=== PATIENT | male | born 1980 | race Caucasian/White ===

== ENCOUNTER 2019-01-21 09:24 | Emergency (ER) | payer SELFPAY ==
--- NOTE | 2019-01-21 10:59 | EDM.PDOC ---
ED HPI GENERAL MEDICAL PROBLEM - General Chief Complaint: ENT Problem Stated Complaint: DENTAL ABSCESS/BACK PAIN Time Seen by Provider: 01/21/19 10:34 Source of Information: Reports: Patient, RN Notes Reviewed - History of Present Illness INITIAL COMMENTS - FREE TEXT/NARRATIVE: 38-year-old patient presents with upper dental discomfort is mid incisors. He also has low back pain. He has been present for about 2 weeks. He does have history of severe cavitation of his upper incisors more so on the left and also left canine tooth. There is been no facial swelling. No fever or chills. Back pain does not radiate down either leg. Worse with movement. Oral/Mouth Pain Score (Numeric/FACES): 8 - Related Data Allergies Allergy/AdvReac Type Severity Reaction Status Date / Time No Known Allergies Allergy Verified 01/21/19 09:34 Home Meds: Home Meds Acetaminophen/HYDROcodone [Carbon 325-5 MG] 1 tab PO Q6H PRN #10 tablet 01/21/19 [Rx] Naproxen [Naprosyn] 500 mg PO Q12HR PRN #14 tab 01/21/19 [Rx] Past Medical History - Past Health History Medical/Surgical History: Denies Medical/Surgical History Psychiatric History: Reports: Addiction Social & Family History - Tobacco Use Smoking Status *Q: Current Every Day Smoker Years of Tobacco use: 31 Packs/Tins Daily: 2 - Caffeine Use Caffeine Use: Reports: Energy Drinks - Recreational Drug Use Recreational Drug Use: Yes Recreational Drug Type: Reports: Marijuana/Hashish, Methamphetamine ED ROS ENT - Review of Systems Review Of Systems: See Below Constitutional: Denies: Fever, Chills HEENT: Reports: Dental Pain. Denies: Throat Pain Respiratory: Denies: Shortness of Breath Cardiovascular: Denies: Chest Pain GI/Abdominal: Denies: Abdominal Pain, Vomiting Musculoskeletal: Reports: Back Pain Skin: Denies: Rash Neurological: Reports: No Symptoms ED EXAM, ENT - Physical Exam Exam: See Below General Appearance: Alert, Mild Distress Eye Exam: Bilateral Eye: PERRL Mouth/Throat: Other (severe cavitation L upper incsissors and L canine, broken off close to gum line, no visible swelling or drainage). No: Dental Abcess, Pharyngeal Erythema, Throat Swelling Head: No: Facial Swelling, Facial Tenderness, Sinus Tenderness Neck: Supple Respiratory/Chest: No Respiratory Distress, Lungs Clear Cardiovascular: Regular Rate, Rhythm Back: Paraspinal Tenderness (low back). No: Vertebral Tenderness Neurological: Alert, Oriented Skin: Warm, Dry, Normal Color Course - Vital Signs Last Recorded V/S: Last Vital Signs Temp 97.4 F 01/21/19 09:31 Pulse 61 01/21/19 09:31 Resp 16 01/21/19 09:31 BP 147/92 H 01/21/19 09:31 Pulse Ox 100 01/21/19 09:31 Departure - Departure Time of Disposition: 10:54 Disposition: Home, Self-Care 01 Condition: Fair Clinical Impression: Pain, dental Low back strain Qualifiers: Encounter type: initial encounter Qualified Code(s): S39.012A - Strain of muscle, fascia and tendon of lower back, initial encounter - Discharge Information Prescriptions: Naproxen [Naprosyn] 500 mg PO Q12HR PRN #14 tab PRN Reason: Pain Acetaminophen/HYDROcodone [Carbon 325-5 MG] 1 tab PO Q6H PRN #10 tablet PRN Reason: Pain Instructions: Low Back Strain Referrals: PCP,None [Primary Care Provider] - Forms: ED Department Discharge Additional Instructions: Rest back, no heavy lifting, Naprosyn 500 mg twice daily, amoxicillin 1000 mg twice daily, You may take Tylenol in addition 2-3 times daily if needed for extra pain relief, hydrocodone if needed for severe pain. Do not take Tylenol and hydrocodone at same time, do not drive when taking hydrocodone. See dentist as soon as possible. Follow-up clinic if back pain not much better within 5-7 days as expected.
== END 2019-01-21 11:20 | disposition home or self-care (01) ==
LOC: JD.ED 09:24
DX: S39.012A Strain of muscle, fascia and tendon of lower back, initial encounter (principal); K08.89 Other specified disorders of teeth and supporting structures; F17.210 Nicotine dependence, cigarettes, uncomplicated; X58.XXXA Exposure to other specified factors, initial encounter; Y93.89 Activity, other specified
CPT/HCPCS: 99283

== ENCOUNTER 2019-10-19 20:45 | Emergency (ER) | payer OTHER ==
[2019-10-19] MEDS ORDERED: Fluorescein 1 MG Ophth Strip EYERT ONE (21:18)
[2019-10-19] MEDS ORDERED: Proparacaine 0.5% Ophth Soln 15 ML Bottle EYERT STA (21:18)
[2019-10-19] MEDS ORDERED: Cephalexin 500 MG Cap PO STA (21:28)
--- NOTE | 2019-10-19 21:33 | EDM.PDOC ---
ED HPI GENERAL MEDICAL PROBLEM - General Chief Complaint: Eye Problems Stated Complaint: EYE PROBLEM Time Seen by Provider: 10/19/19 20:58 Source of Information: Reports: Patient History Limitations: Reports: No Limitations - History of Present Illness INITIAL COMMENTS - FREE TEXT/NARRATIVE: Mr. Ragland is a very pleasant 39-year-old gentleman who now presents the ED stating that he woke up this morning with a painful swelling under his right eye. The area is tender to palpation. Pain is increased to the soft tissue if he blinks, however, he denies having any eyeball pain, and he also denies any changes in vision. No eye drainage. He does not recall any injury to the area, although he does work construction, and he acknowledges that it is possible that something could have flown into his face without him immediately knowing it. He also acknowledges that it is possible that he could have been bitten by an insect. No prior similar symptoms. The patient states that he did not take any medications to try to treat his symptoms, he did not flush his right eye, and he did not instill any eyedrops. Here in the ED, the patient is found to be hemodynamically stable, afebrile, saturating 98% on room air. Other than the right eye issue, the patient denies recent fever, chills, sore throat, ear pain, nasal or sinus congestion, cough, dyspnea, chest pain, palpitations, nausea, vomiting, constipation, diarrhea, abdominal pain, urinary symptoms, recent weight gain or weight loss, recent bloody bowel movements or black bowel movements, recent joint aches, headaches, or rashes. The patient does not have a PCP. Right Eyelid Pain Score (Numeric/FACES): 2 - Related Data Allergies Allergy/AdvReac Type Severity Reaction Status Date / Time No Known Allergies Allergy Verified 10/19/19 21:00 Home Meds: Home Meds cephALEXin [Keflex] 1 tab PO Q6H #20 capsule 10/19/19 [Rx] Past Medical History Psychiatric History: Reports: Addiction (methamphetamine) - Past Surgical History HEENT Surgical History: Reports: Oral Surgery (oral abscess darined) GI Surgical History: Reports: Hernia Repair/Other (as an ) Dermatological Surgical History: Reports: Other (See Below) (Bilateal legs debrided) Social & Family History - Tobacco Use Smoking Status *Q: Current Every Day Smoker Years of Tobacco use: 32 Packs/Tins Daily: 2 - Caffeine Use Caffeine Use: Reports: None - Alcohol Use Alcohol Use History: Yes Alcohol Use Frequency: Rarely - Recreational Drug Use Recreational Drug Use: Yes Drug Use in Last 12 Months: Yes Recreational Drug Type: Reports: Marijuana/Hashish (smokes near-daily), Methamphetamine (last snorted, smoked, injected May 2019), Other (see below) ("Everything except heroin") - Living Situation & Occupation Living situation: Reports: Single, Alone Occupation: Employed (Construction) ED ROS GENERAL - Review of Systems Review Of Systems: Comprehensive ROS is negative, except as noted in HPI. ED EXAM GENERAL W FULL EYE - Physical Exam Exam: See Below Exam Limited By: No Limitations General Appearance: Alert, WD/WN, No Apparent Distress Eye Exam: Bilateral Eye: EOMI, Normal Inspection, PERRL Eyelids: Right: Edema (mild swelling to soft tissue UNDER eye), Lid Everted for Exam Conjunctiva & Sclera: Right: Normal Appearance (not injected) Cornea Exam: Right: Normal Appearance, Examined with Flourescein Extraocular Movements: Bilateral: Intact Pupils: Normal Accommodation Pupillary Size: Bilateral: 5 mm Pupillary Reaction: Bilateral: Brisk Anterior Chamber: Right: Normal Appearance Ears: Normal External Exam, Hearing Grossly Normal Nose: Normal Inspection Throat/Mouth: Normal Inspection, Normal Lips, Normal Voice, No Airway Compromise Head: Atraumatic, Facial Swelling (mild, to the soft tissue under the patient's right eye, with very minimal associated erythema. The skin is tender to palpation, however, there is no bony tenderness to the zygomatic arch.) Course - Vital Signs Last Recorded V/S: Last Vital Signs Temp 36.5 C 10/19/19 20:58 Pulse 81 10/19/19 20:58 Resp 16 10/19/19 20:58 BP 138/77 10/19/19 20:58 Pulse Ox 98 10/19/19 20:58 - Orders/Labs/Meds Meds: Medications Discontinued Medications Generic Name Dose Route Start Last Admin Trade Name Freq PRN Reason Stop Dose Admin Cephalexin 500 mg 10/19/19 21:28 10/19/19 21:32 Keflex PO 10/19/19 21:29 500 mg ONETIME STA Administration Fluorescein Sodium 1 mg 10/19/19 21:18 10/19/19 21:21 Ful-Reena EYERT 10/19/19 21:19 1 mg ONETIME ONE Administration Proparacaine HCl 1 ml 10/19/19 21:18 10/19/19 21:21 Proparacaine 0.5% Candy Soln EYERT 10/19/19 21:19 1 applic ONETIME STA Administration - Re-Assessments/Exams Free Text/Narrative Re-Assessment/Exam: 10/19/19 21:27 As above, the patient woke with mild swelling with minimal erythema to the soft tissue under his right eye. No globe problem, no vision changes, and examination of his right eye under a Wood's lamp with fluorescein is unremarkable. The source of the patient's swelling and tenderness is not entirely clear. It may be that he was bitten by an insect and that he is suffering from a local inflammatory reaction, or, it is possible that he has some very early cellulitis. For today's purposes, I think it would be prudent to treat as if he has cellulitis, even though my suspicion is low, therefore I will start him on some Keflex, and prescribe a 5-day course. I would also like him to apply ice packs to the area as much as possible over the next few days. I will refer him to the clinic, in the event that his symptoms do not improve, and he can also establish a PCP. Departure - Departure Time of Disposition: 21:29 Disposition: Home, Self-Care 01 Condition: Good Clinical Impression: Localized soft tissue swelling - Discharge Information *PRESCRIPTION DRUG MONITORING PROGRAM REVIEWED*: Not Applicable *COPY OF PRESCRIPTION DRUG MONITORING REPORT IN PATIENT SHAUN: Not Applicable Prescriptions: cephALEXin [Keflex] 1 tab PO Q6H #20 capsule Referrals: PCP,None [Primary Care Provider] - Isabella Randolph NP [Nurse Practitioner] - Forms: ED Department Discharge Additional Instructions: You were seen in the emergency room after waking up with tender swelling under your right eye. The cause of the tender swelling is not immediately known. It may be that you were bitten by an insect, or it may be that you have very early cellulitis. We recommend that you apply an ice pack to the area as much as possible over the next few days, to help minimize swelling. You have been started on the antibiotic Keflex, and a prescription for Keflex has been sent to the [facility], located in the [facility] grocery store. Take 1 tablet of Keflex every 6 hours, as prescribed. Finish the entire prescription unless told otherwise by a doctor. If your symptoms fail to improve over the next few days, we recommend that you follow-up with Isabella Randolph NP, or one of the other providers in the clinic, further evaluation, and to establish a PCP. If any other problems, including worsening of your symptoms, please do not hesitate to return to the ER. Sepsis Event Note (ED) - Evaluation Sepsis Screening Result: No Definite Risk - Focused Exam Vital Signs: Vital Signs Temp Pulse Resp BP Pulse Ox 10/19/19 20:58 36.5 C 81 16 138/77 98
== END 2019-10-19 21:42 | disposition home or self-care (01) ==
LOC: JD.ED 20:45
DX: R22.9 Localized swelling, mass and lump, unspecified (principal); F17.210 Nicotine dependence, cigarettes, uncomplicated
CPT/HCPCS: 99283; A9270

== ENCOUNTER 2022-10-27 20:14 | Emergency (ER) | payer SELFPAY ==
[2022-10-27] MEDS ORDERED: Fluorescein 1 MG Ophth Strip EYELF ONE (21:02)
[2022-10-27] MEDS ORDERED: Ciprofloxacin 0.3% Ophth Soln 5 ML Bottle EYELF ONE (21:14)
== END 2022-10-27 21:42 | disposition home or self-care (01) ==
LOC: JD.ED 20:14
DX: S05.02XA Injury of conjunctiva and corneal abrasion without foreign body, left eye, initial encounter (principal); F17.210 Nicotine dependence, cigarettes, uncomplicated
CPT/HCPCS: 99283; A9270; 99282

== ENCOUNTER 2024-01-28 08:12 | Day surgery (SDC) | payer BC, OTHER ==
[~2024-01-28 08:12] MED LIST: Sodium Chloride 0.9% 10 ML Syringe FLUSH PRN; Sodium Chloride 0.9% 10 ML Syringe FLUSH SCH
[2024-01-28] MEDS: Lactated Ringers 1,000 ML IV SCH (08:45)
[2024-01-28] MEDS ORDERED: fentaNYL 100 MCG/2 ML SDV ONE (08:48)
[2024-01-28] MEDS ORDERED: Propofol 200 MG/20 ML SDV ONE ×3 (08:48)
[2024-01-28] MEDS ORDERED: Lidocaine 1% 5 ML VIAL ONE (08:49)
[2024-01-28] MEDS ORDERED: Midazolam 1 MG/ML 2 ML SDV ONE (08:49)
[2024-01-28] MEDS ORDERED: dexmedeTOMIDine HCl 200 MCG/2 ML SDV ONE (08:49)
[2024-01-28] MEDS ORDERED: Ketamine 200 MG/20 ML MDV ONE (09:21)
[2024-01-28] MEDS ORDERED: Ondansetron 4 MG/2 ML SDV ONE (09:30)
[2024-01-28] MEDS: EPINEPHrine 1 MG/ML SDV ONE (09:32)
[2024-01-28] MEDS: Lidocaine 1% with EPINEPHrine 1:100,000 20 ML MDV ONE (09:32)
[2024-01-28] MEDS: Bupivacaine 0.5% 10 ML SDV ONE (09:32)
== END 2024-01-28 12:58 | disposition home or self-care (01) ==
LOC: JD.SDS 08:12
PROVIDERS: ATTEND Surgery
DX: D17.1 Benign lipomatous neoplasm of skin and subcutaneous tissue of trunk (principal); F17.200 Nicotine dependence, unspecified, uncomplicated
CPT/HCPCS: 22903; J0171; J0665; J2250; J2405; J2704; J3010; J7120; 00400; J3490

== ENCOUNTER 2024-02-06 11:22 | Emergency (ER) | payer BC, OTHER | END 2024-02-06 12:57 | disposition home or self-care (01) | LOC: JD.ED 11:22 | DX: L76.33 Postprocedural seroma of skin and subcutaneous tissue following a dermatologic procedure (principal); F17.210 Nicotine dependence, cigarettes, uncomplicated | CPT/HCPCS: 76705; 76705-26; 99283; 99284 ==

== ENCOUNTER 2024-12-09 15:59 | Emergency (ER) | payer BC ==
[2024-12-09] MEDS ORDERED: Sodium Chloride 0.9% 10 ML Syringe FLUSH PRN (16:27)
[2024-12-09 16:57] LABS: BASOPHILS ABSOLUTE AUTO 0.1 K/mm3 (0.0-0.2); BASOPHILS PERCENT AUTO 0.5 % (0.0-1.0); EOSINOPHILS ABSOLUTE AUTO 0.2 K/mm3 (0.0-0.4); EOSINOPHILS PERCENT AUTO 1.7 % (0.0-6.0); IMMATURE GRAN ABSOLUTE AUTO 0.05 K/mm3 (0.00-0.05); IMMATURE GRAN PERCENT AUTO 0.4 % (0.0-0.4); LYMPHOCYTES ABSOLUTE AUTO 3.6 K/mm3 (1.0-4.8); LYMPHOCYTES PERCENT AUTO 28.3 % (24.0-44.0); MEAN PLATELET VOLUME 10.1 fl (9.4-12.4); MONOCYTES ABSOLUTE AUTO 1.0 K/mm3 (0.0-0.8); MONOCYTES PERCENT AUTO 7.7 % (0.0-8.0); NEUTROPHILS ABSOLUTE AUTO 7.9 K/mm3 (1.8-7.7); NEUTROPHILS PERCENT AUTO 61.4 % (41.0-71.0); NRBC ABSOLUTE 0.00 (0.00-0.02); NRBC PERCENT 0.0 % (0.0-0.2); PLATELET COUNT,PLT 280 K/mm3 (150-400); RED BLOOD CELL COUNT 5.22 M/mm3 (4.52-5.90); WHITE BLOOD CELL COUNT,WBC 12.78 K/mm3 (3.9-11.3)
[2024-12-09 17:13] LABS: A/G RATIO 1.1 (1-2); ALANINE AMINOTRANSFERASE,ALT 24.0 U/L (16-63); ASPARTATE AMNIOTRANSFERASE,AST 13.0 U/L (15-37); BILIRUBIN TOTAL 0.3 mg/dL (0.2-1.0); BLOOD UREA NITROGEN,BUN 20.0 mg/dL (7-18); CARBON DIOXIDE,CO2 30.0 mEq/L (21-32); CHLORIDE,CL 101.0 mEq/L (98-107); CREATININE 1.0 mg/dL (0.7-1.3); EST CRCL DRUG DOSING (CG) 108.46 mL/min; ESTIMATED GFR 95.0 mL/min (>60); GLUCOSE RANDOM 86.0 mg/dL (70-99); POTASSIUM,K 3.8 mEq/L (3.5-5.1); PROTEIN TOTAL,TP 6.8 g/dl (6.4-8.2); SODIUM,NA 139.0 mEq/L (136-145); TROPONIN I HIGH SENSITIVITY 5.0 pg/mL (<=76)
== END 2024-12-09 18:20 | disposition home or self-care (01) ==
LOC: JD.ED 15:59
DX: J45.21 Mild intermittent asthma with (acute) exacerbation (principal); F17.210 Nicotine dependence, cigarettes, uncomplicated; Z79.51 Long term (current) use of inhaled steroids
CPT/HCPCS: 36415; 71045; 80053; 83735; 84484; 85025; 93005; 94640; 99285; J7620; A9270-GY